=== PATIENT | female | born 1975 | race African-American/Black ===

== ENCOUNTER 2017-02-03 09:25 | Emergency (ER) | payer SELFPAY ==
[~2017-02-03] VITALS: Ht 152.4 cm; Wt 90.7 kg
[2017-02-03] MEDS ORDERED: FLEXERIL10 MG PO (12:35)
[2017-02-03] MEDS ORDERED: MOTRIN800 MG PO (12:35)
[2017-02-03 12:52] VITALS: BP 133/90
== END 2017-02-03 12:53 | disposition home or self-care (01) ==
LOC: EME 09:25
DX: S20.229A Contusion of unspecified back wall of thorax, initial encounter (principal); M54.2 Cervicalgia; W17.89XA Other fall from one level to another, initial encounter; R20.2 Paresthesia of skin; F17.200 Nicotine dependence, unspecified, uncomplicated
CPT/HCPCS: 72070; 99281; 99283; J1885

== ENCOUNTER 2017-03-14 12:01 | Emergency (ER) | payer OTHER ==
[~2017-03-14] VITALS: Ht 152.4 cm; Wt 88.6 kg
[~2017-03-14 12:01] MED LIST: FLEXERIL10 MG PO; MOTRIN800 MG PO
[2017-03-14 12:51] LABS: ADD MIUA? YES; BILIRUBIN NEGATIVE; BLOOD NEGATIVE; COLOR YELLOW ((YELLOW)); GLUCOSE (STRIP) NEGATIVE; KETONES NEGATIVE; LEUKOCYTES NEGATIVE; NITRITE NEGATIVE; PROTEIN (STRIP) NEGATIVE; UROBILINOGEN 0.2 MG/DL (0.2-1.0)
[2017-03-14 12:59] LABS: BACTERIA RARE /HPF; EPITHELIAL CELLS 1+ /HPF; MUCUS 1+ /LPF; RED BLOOD CELLS 0-5 /HPF (0-5); UCUL ADDED? NO; WHITE BLOOD CELLS 0-5 /HPF (0-5)
[2017-03-14 13:01] LABS: EOSINOPHIL (%) 2.1 % (0-5); EOSINOPHIL COUNT 0.2 K/uL (0-0.3); HEMATOCRIT 43.7 % (36.0-46.0); IMMATURE GRANULOCYTE (%) 0.1 % (0.0-0.7); INSTRUMENT ABS NEUTROPHIL CT 3.1 K/uL; LYMPHOCYTE COUNT 3.3 K/uL (1.0-2.8); MCH 26.3 PG (29.0-34.0); MCHC 32.3 G/DL (30.0-36.0); MCV 81.4 FL (83-99); MEAN PLAT.VOLUME 11.2 uM^3 (9.5-12.4); MONOCYTE (%) 6.1 % (3-12); MONOCYTE COUNT 0.4 K/uL (0-0.8); NEUTROPHIL COUNT 3.1 K/uL (1.8-6.4); PLATELET COUNT 274 K/uL (156-360); RBC DIS.WIDTH-CV 14.1 % (11.8-14.6); RBC DIS.WIDTH-SD 41.1 % (39-53); RED BLOOD COUNT 5.37 M/uL (3.80-5.20); WHITE BLOOD COUNT 7.1 K/uL (4.1-10.2)
[2017-03-14 13:11] LABS: CHLORIDE 110 mEq/L (99-109)
[2017-03-14 13:12] LABS: POTASSIUM 3.7 mEq/L (3.7-5.4); SODIUM 138 mEq/L (136-147)
[2017-03-14 13:14] LABS: GLUCOSE 89 mg/dL (70-99)
[2017-03-14 13:15] LABS: ANION GAP 5 MEQ/L (2-14)
[2017-03-14 13:16] LABS: TOTAL BILIRUBIN 0.4 mg/dL (0.0-1.0)
[2017-03-14 13:17] LABS: ALKALINE PHOSPHATASE 68 IU/L (3-129); GFR ESTIMATE (CALCULATED) > 59 mL/min/
[2017-03-14 13:19] LABS: UREA NITROGEN (BUN) 12 mg/dL (9-23)
[2017-03-14] MEDS ORDERED: BACLOFEN10 MG PO (15:19)
[2017-03-14] MEDS ORDERED: NAPROXEN500 MG PO (15:19)
[2017-03-14 15:49] VITALS: BP 133/96
== END 2017-03-14 15:50 | disposition home or self-care (01) ==
LOC: EME 12:01
PROVIDERS: Physician Assistant
DX: R10.2 Pelvic and perineal pain (principal); Z90.710 Acquired absence of both cervix and uterus; J45.909 Unspecified asthma, uncomplicated; Z72.0 Tobacco use
CPT/HCPCS: 80053; 81003; 85025; 99281; 99285; J0595; J1885; J2060; J7120

== ENCOUNTER 2018-01-27 18:49 | Emergency (ER) | payer OTHER ==
[~2018-01-27] VITALS: Ht 152.4 cm; Wt 88.9 kg
[~2018-01-27 18:49] MED LIST changes: +BACLOFEN10 MG PO; +NAPROXEN500 MG PO
[2018-01-27 19:54] LABS: BASOPHIL (%) 0.4 % (0-1); EOSINOPHIL (%) 1.7 % (0-5); EOSINOPHIL COUNT 0.2 K/uL (0-0.3); HEMATOCRIT 42.5 % (36.0-46.0); HEMOGLOBIN 14.1 G/DL (11.9-15.5); IMMATURE GRANULOCYTE (%) 0.3 % (0.0-0.7); LYMPHOCYTE (%) 31.8 % (15-42); MCH 27.3 PG (29.0-34.0); MCHC 33.2 G/DL (30.0-36.0); MCV 82.4 FL (83-99); MONOCYTE COUNT 0.6 K/uL (0-0.8); NEUTROPHIL (%) 59.8 % (45-76); NEUTROPHIL COUNT 5.6 K/uL (1.8-6.4); PLATELET COUNT 236 K/uL (156-360); RBC DIS.WIDTH-CV 14.6 % (11.8-14.6); RBC DIS.WIDTH-SD 44.6 % (39-53); RED BLOOD COUNT 5.16 M/uL (3.80-5.20); WHITE BLOOD COUNT 9.4 K/uL (4.1-10.2)
[2018-01-27 20:03] LABS: CHLORIDE 108 mEq/L (99-109); POTASSIUM 3.9 mEq/L (3.7-5.4); SODIUM 141 mEq/L (136-147)
[2018-01-27 20:05] LABS: GLUCOSE 84 mg/dL (70-99)
[2018-01-27 20:09] LABS: CREATININE 0.9 mg/dL (0.6-1.3); GFR ESTIMATE (CALCULATED) > 59 mL/min/
[2018-01-27 20:10] LABS: UREA NITROGEN (BUN) 16 mg/dL (9-23)
[2018-01-27 20:18] LABS: QUANTITATIVE HCG < 4.0 MIU/ML
[2018-01-27 20:35] LABS: APPEARANCE CLEAR ((CLEAR)); BILIRUBIN NEGATIVE; BLOOD SMALL; COLOR YELLOW ((YELLOW)); GLUCOSE (STRIP) NEGATIVE; KETONES NEGATIVE; LEUKOCYTES NEGATIVE; NITRITE NEGATIVE; PROTEIN (STRIP) NEGATIVE; SPECIFIC GRAVITY 1.021 (1.000-1.030)
[2018-01-27 20:56] LABS: BACTERIA RARE /HPF; EPITHELIAL CELLS 1+ /HPF; MUCUS TRACE /LPF; WHITE BLOOD CELLS 0-5 /HPF (0-5)
[2018-01-27 21:38] LABS: THYROTROPIN (TSH) 1.8 MIU/L (0.4-5.5)
[2018-01-27] MEDS ORDERED: BENTYL20 MG PO (21:51)
[2018-01-27] MEDS ORDERED: ZOFRAN ODT8 MG PO (21:51)
[2018-01-27 22:09] VITALS: BP 116/90
== END 2018-01-27 22:10 | disposition home or self-care (01) ==
LOC: EME 18:49
PROVIDERS: Physician Assistant
DX: R11.0 Nausea (principal); R10.84 Generalized abdominal pain; Z72.0 Tobacco use
CPT/HCPCS: 74018; 80048; 81003; 84443; 84702; 85025; 99281; 99284